=== PATIENT | female | born 1970 | race Caucasian/White ===

== ENCOUNTER 2018-08-24 07:30 | Emergency (ER) | payer SELFPAY ==
[2018-08-24] MEDS ORDERED: NACL 0.9% 1000 ML 1,000 ML IV ONE ×2 (07:36→09:19)
[2018-08-24 08:16] LABS: Hemoglobin 12.3 gm/dl (10.1-14.3); Mean Corpuscular HGB Conc 32 % (30-34); Mean Corpuscular Volume 84 fl (79-97); Platelet Count 272 K/mm3 (140-440); Red Blood Count 4.52 M/mm3 (3.65-5.03); Red Cell Distribution Width 17.9 % (13.2-15.2)
[2018-08-24 08:34] LABS: Bacteria,Urine 1+ /HPF (Negative); Bilirubin,Urine NEG (Negative); Blood,Urine LG (Negative); Calcium Oxalate Crystals,Urine 2+; Color,Urine Yellow (Yellow); Mucus,Urine 1+ /HPF; Protein,Urine <15 mg/dL mg/dL (Negative); Urobilinogen,Urine < 2.0 mg/dL (<2.0)
[2018-08-24 08:38] LABS: Alanine Aminotransferase 18 units/L (7-56); Albumin 4.2 g/dL (3.9-5); BUN/Creatinine Ratio 29; Blood Urea Nitrogen 20 mg/dL (7-17); Calcium 8.7 mg/dL (8.4-10.2); Hemolysis Index 8
[2018-08-24] MEDS ORDERED: ZOFRAN IV ONE (09:19)
[2018-08-24] MEDS ORDERED: MORPHINE IV ONE (09:19)
--- NOTE | 2018-08-24 09:25 | Emergency Department Report ---
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 Houston is a 48 yo female with hx of gallbladder issues who presents with RUQ severe pain for the past several days. No change with movement. +++change with eating. Gradual onset. NO radiation. Constant. MD Complaint: abdominal pain -: Gradual Location: RUQ, R flank Radiation: none Migration to: no migration Severity: severe Quality: sharp Consistency: constant Improves With: nothing Worsens With: nothing Associated Symptoms: nausea, vomiting - Related Data Previous Rx's Medication Instructions Recorded Last Taken Type Azithromycin [Zithromax Z-LIZZY] 250 mg PO DAILY #6 tablet 11/14/14 Unknown Rx HYDROcodone/ACETAMINOPHEN [[place] 1 each PO Q4-6H PRN #16 tablet 11/14/14 Unknown Rx 7.5-325 mg TAB] Promethazine Dm (Nf) [Phenergan Dm 5 ml PO Q6H PRN #120 ml 11/14/14 Unknown Rx 6.25/15 mg 5 ml] HYDROcodone/APAP 5-325 [[place] 1 each PO Q6HR PRN #10 tablet 08/24/18 Unknown Rx 5/325] Promethazine [Phenergan TAB] 25 mg PO Q6HR PRN #10 tab 08/24/18 Unknown Rx Allergies Allergy/AdvReac Type Severity Reaction Status Date / Time No Known Allergies Allergy Verified 08/24/18 07:34 ED Review of Systems ROS: Stated complaint: ABDOMINAL PAIN Other details as noted in HPI Comment: All other systems reviewed and negative Constitutional: malaise. denies: fever Respiratory: denies: cough Cardiovascular: denies: palpitations Gastrointestinal: abdominal pain, nausea, vomiting. denies: diarrhea ED Past Medical Hx - Past Medical History Previous Medical History?: No - Surgical History Past Surgical History?: No - Social History Smoking Status: Never Smoker Substance Use Type: None - Medications Home Medications: Home Medications Medication Instructions Recorded Confirmed Last Taken Type Azithromycin [Zithromax Z-LIZZY] 250 mg PO DAILY #6 tablet 11/14/14 Unknown Rx HYDROcodone/ACETAMINOPHEN [[place] 1 each PO Q4-6H PRN #16 tablet 11/14/14 Unknown Rx 7.5-325 mg TAB] Promethazine Dm (Nf) [Phenergan Dm 5 ml PO Q6H PRN #120 ml 11/14/14 Unknown Rx 6.25/15 mg 5 ml] HYDROcodone/APAP 5-325 [[place] 1 each PO Q6HR PRN #10 tablet 08/24/18 Unknown Rx 5/325] Promethazine [Phenergan TAB] 25 mg PO Q6HR PRN #10 tab 08/24/18 Unknown Rx ED Physical Exam - General Limitations: Language Barrier General appearance: alert, in no apparent distress - Head Head exam: Present: atraumatic, normocephalic - Eye Eye exam: Present: normal appearance - ENT ENT exam: Present: mucous membranes moist - Neck Neck exam: Present: normal inspection. Absent: tenderness, meningismus - Respiratory Respiratory exam: Present: normal lung sounds bilaterally. Absent: respiratory distress, wheezes, rales, rhonchi - Cardiovascular Cardiovascular Exam: Present: regular rate, normal rhythm, normal heart sounds. Absent: systolic murmur, diastolic murmur, rubs, gallop - GI/Abdominal GI/Abdominal exam: Present: soft, normal bowel sounds. Absent: distended, tenderness, guarding, rebound - Extremities Exam Extremities exam: Present: normal inspection - Back Exam Back exam: Present: normal inspection - Neurological Exam Neurological exam: Present: alert, oriented X3 - Psychiatric Psychiatric exam: Present: normal affect, normal mood - Skin Skin exam: Present: warm, dry, intact, normal color. Absent: rash ED Course Vital Signs 08/24/18 07:34 Temperature 97.6 F Pulse Rate 81 Respiratory 16 Rate Blood Pressure 147/91 O2 Sat by Pulse 100 Oximetry ED Medical Decision Making - Lab Data Result diagrams: 08/24/18 08:06 08/24/18 08:06 Laboratory Results - last 24 hr 08/24/18 08/24/18 08/24/18 07:54 08:06 08:06 WBC 15.6 H RBC 4.52 Hgb 12.3 Hct 38.0 MCV 84 MCH 27 L MCHC 32 RDW 17.9 H Plt Count 272 Seg Neutrophils % Train Planner Sodium 138 Potassium 3.8 Chloride 102.2 Carbon Dioxide 23 Anion Gap 17 BUN 20 H Creatinine 0.7 Estimated GFR > 60 BUN/Creatinine Ratio 29 Glucose 115 H Calcium 8.7 Total Bilirubin 0.30 AST 23 ALT 18 Alkaline Phosphatase 66 Total Protein 7.5 Albumin 4.2 Albumin/Globulin Ratio 1.3 Lipase 30 Urine Color Yellow Urine Turbidity Clear Urine pH 6.0 Ur Specific [place] 1.013 Urine Protein <15 mg/dl Urine Glucose (UA) Neg Urine Ketones Neg Urine Blood Lg Urine Nitrite Neg Urine Bilirubin Neg Urine Urobilinogen < 2.0 Ur Leukocyte Esterase Neg Urine WBC (Auto) 2.0 Urine RBC (Auto) 55.0 U Epithel Cells (Auto) 1.0 Urine Bacteria (Auto) 1+ Calcium Oxalate Crystal 2+ Urine Mucus 1+ - Radiology Data Radiology results: report reviewed ct: Cholelithiasis Ultrasound: Dilated CBD no cholecystitis positive cholelithiasis - Medical Decision Making Ms. Naidu presents with right quadrant pain due to recurrent biliary colic. No evidence of cholecystitis on physical exam or ultrasound CT findings. Elevated WBC nonspecific findings. Hepatic panel does not reveal obstructive pattern. Referred to outpatient surgeon for elective cholecystectomy. rx: norco, promethazine Critical care attestation.: If time is entered above; I have spent that time in minutes in the direct care of this critically ill patient, excluding procedure time. ED Disposition Clinical Impression: Recurrent biliary colic Disposition: DC-01 TO HOME OR SELFCARE Is pt being admited?: No Does the pt Need Aspirin: No Condition: Stable Instructions: Cholelithiasis (ED), Biliary Colic (ED) Prescriptions: HYDROcodone/APAP 5-325 [[place]aly 5/325] 1 each PO Q6HR PRN #10 tablet PRN Reason: Pain Promethazine [Phenergan TAB] 25 mg PO Q6HR PRN #10 tab PRN Reason: Nausea Referrals: HERBER SOLOMON MD [Staff Physician] - 3-5 Days Print Language: SWEDISH
[2018-08-24 09:32] LABS: Basophils % (Manual) 0 % (0.0-1.8); Total Cells Counted 100
[2018-08-24 09:33] LABS: Anisocytosis 1+; Band Neutrophils # (Manual) 0.2 K/mm3; Eosinophils % (Manual) 0 % (0.0-4.3); Ovalocytes Few; Platelet Estimate Consistent w Auto
--- NOTE | 2018-08-24 11:01 | Cat Scan Report ---
CT abdomen and pelvis without contrast: Right upper quadrant pain. Transverse images are obtained from the low chest to the ischium with coronal and sagittal 2-D reformatted images. The visualized lungs are clear. The gallbladder is present. The main body of the gallbladder is generally inhomogeneous but no definite calculus. There appears to be a narrowing between the mid and lower portion of the gallbladder in the neck. In the neck region there are calcifications the largest of which measures 11 mm. The gallbladder wall does not appear to be overtly thickened and there is no pericholecystic fluid noted. The CBD is not dilated. The abdominal and retroperitoneal organs are not otherwise remarkable. Abdominal aorta is normal in size and contour. The unopacified small bowel is unremarkable. There is a moderate volume of scattered fecal matter in the colon. The appendix is thickened measuring approximately 9-10 mm. There is no calculus and no overt inflammatory changes identified although near the tail of the pancreas there appears to be some scarring in the fatty tissues. Patient's reproductive organs are present. Impressions: 1. Cholelithiasis in what appears to be possible scarring or segmentation of the gallbladder. 2. Thickened appendix but no overt evidence of current inflammation. What appears to be some scarring near the tail of the gallbladder could be indicative of prior inflammation. Recommendation: Clinical correlation for the above findings recommended and consider additional gallbladder imaging with ultrasound.
--- NOTE | 2018-08-24 11:47 | Ultrasound Report ---
Complete abdominal ultrasound: Right upper quadrant pain. Recent abnormal CT scan. Images of the liver and spleen are unremarkable. The pancreas is not optimally visualized but appears generally unremarkable. There is diffuse shadowing from the gallbladder. The visualized portion of the anterior wall however does not appear thickened nor is there any pericholecystic fluid identified. The CBD diameter is 11.2 mm. No intraluminal filling defect identified. No epigastric masses identified. The right renal length is 12.2 cm and the kidney appears to be echogenically normal. The right renal length is 18.4 cm and also appears to be relatively normal. The transverse diameter of the proximal abdominal aorta is 2.1 cm. Impressions: 1. Cholelithiasis. No ultrasound findings to indicate cholecystitis. 2. Dilated CBD. No obstructing site identified.
[2018-08-24] MEDS ORDERED: NORCO 5/325 PO ONE (11:56)
[2018-08-24] MEDS ORDERED: TORADOL IV ONE (11:56)
[2018-08-24 12:31] VITALS: BP 142/86
== END 2018-08-24 12:31 | disposition home or self-care (01) ==
LOC: ED 07:30
DX: K80.51 Calculus of bile duct without cholangitis or cholecystitis with obstruction (principal)
CPT/HCPCS: 36415; 74176; 76700; 80053; 81001; 83690; 85007; 85025; 96361; 96374; 96375; 99284; J1885; J2270; J2405; J7030